=== PATIENT | female | born 1975 | race Caucasian/White ===

== ENCOUNTER → 2019-05-17 13:43 | Outpatient (BNVA) | payer MEDICARE, SELFPAY | PROVIDERS: Family Provider Family Medicine; PCP Family Medicine; Visit Provider Nurse Practitioner | DX: F31.81 Bipolar II disorder (principal); F17.210 Nicotine dependence, cigarettes, uncomplicated | CPT/HCPCS: 99213 ==

== ENCOUNTER → 2019-08-09 07:40 | Outpatient (BNVA) | payer MEDICARE, SELFPAY | PROVIDERS: Family Provider Family Medicine; PCP Family Medicine; Visit Provider Nurse Practitioner | DX: F31.81 Bipolar II disorder (principal) | CPT/HCPCS: 99213 ==

== ENCOUNTER → 2019-11-01 07:36 | Outpatient (BNVA) | payer MEDICARE, SELFPAY | PROVIDERS: Family Provider Family Medicine; PCP Family Medicine; Visit Provider Nurse Practitioner | DX: F31.81 Bipolar II disorder (principal); F17.210 Nicotine dependence, cigarettes, uncomplicated | CPT/HCPCS: 99213 ==

== ENCOUNTER → 2020-01-02 11:32 | Outpatient (BNVA) | payer BC, SELFPAY | PROVIDERS: Family Provider Family Medicine; PCP Family Medicine; Visit Provider Nurse Practitioner Women's Health | DX: N90.89 Other specified noninflammatory disorders of vulva and perineum (principal) | CPT/HCPCS: 88305 ==

== ENCOUNTER → 2020-01-10 13:19 | Outpatient (BNVA) | payer BC, SELFPAY | PROVIDERS: Family Provider Family Medicine; PCP Family Medicine; Visit Provider Family Medicine | DX: L81.9 Disorder of pigmentation, unspecified (principal) | CPT/HCPCS: 88304 ==

== ENCOUNTER → 2020-02-05 08:08 | Outpatient (BNVA) | payer BC, SELFPAY | PROVIDERS: Family Provider Family Medicine; PCP Family Medicine; Visit Provider Nurse Practitioner | DX: F31.81 Bipolar II disorder (principal); F17.210 Nicotine dependence, cigarettes, uncomplicated; F43.12 Post-traumatic stress disorder, chronic; F60.3 Borderline personality disorder | CPT/HCPCS: 99214 ==

== ENCOUNTER 2020-02-06 14:41 | Outpatient (CLI) | payer MEDICARE, SELFPAY ==
--- NOTE | 2020-02-06 15:30 | MM_ITS ---
WS: [id number] BILATERAL SCREENING DIGITAL MAMMOGRAM WITH CAD HISTORY: screening breast cancer COMPARISON: 12/30/2017 and 07/20/2013 Bilateral CC and MLO views submitted. Computer aided detection analyzed. Breast composition: There are scattered areas of fibroglandular density. No suspicious masses, microc alcifications or architectural distortion. Benign calcifications in each breast. MM/[place] [id number] IMPRESSION: BI-RADS: 2-Benign FOLLOW UP: 1 Year Follow-up
== END 2020-02-06 14:42 | disposition home or self-care (01) ==
LOC: RADSHAW 14:47
PROVIDERS: PCP Family Medicine; Visit Provider Nurse Practitioner Women's Health
DX: Z12.31 Encounter for screening mammogram for malignant neoplasm of breast (principal)
CPT/HCPCS: 77067

== ENCOUNTER → 2020-03-06 08:07 | Outpatient (BNVA) | payer MEDICARE, SELFPAY | PROVIDERS: PCP Family Medicine; Visit Provider Nurse Practitioner | DX: F31.81 Bipolar II disorder (principal); F43.12 Post-traumatic stress disorder, chronic | CPT/HCPCS: 99214 ==

== ENCOUNTER → 2020-04-01 08:23 | Outpatient (BNVA) | payer MEDICARE, SELFPAY | PROVIDERS: PCP Family Medicine; Visit Provider Nurse Practitioner | DX: F31.81 Bipolar II disorder (principal) | CPT/HCPCS: 99214 ==

== ENCOUNTER 2020-04-19 14:15 | Emergency (ER) | payer MEDICARE, MEDICAID, SELFPAY ==
[2020-04-19 14:34] VITALS: BP 143/89; PULSE 99; RESP 18; TEMP 36.6; O2SAT 97; BMI 44.3
--- NOTE | 2020-04-19 15:08 | W.ED.SKABFB ---
HPI - Skin/Abscess/Foreign Bdy General: Chief complaint: Skin/Abscess/Foreign Body Stated complaint: phy ref/poss staph infection Time Seen by Provider: 04/19/20 14:45 History of Present Illness: HPI narrative: This patient is a 44 year old female sent from [facility] for a staph infection on her abdomen. She has had pain and swelling for about a week. It bleed in the shower one day, but still has a lot of swelling and tenderness. She has had multiple skin infections in the past. No fever. Feels ok otherwise. complaint: abscess/boil Onset (ago): week(s) (1) Severity: similar to previous episodes Severity scale (1-10): 5 Quality: burning Pain Consistency: constant Relieving factors: none Exacerbating factors: palpation and movement Associated symptoms: Deny fever(s) Review of Systems Const: Denies: fever(s) Card: Denies: chest pain Resp: Denies: dyspnea or non-productive cough Skin/Breast: Reports: erythema, skin tenderness and skin swelling [facility] ED PFSH: Medical History Bipolar II disorder Dyslipidemia Essential hypertension Nicotine dependence, cigarettes, uncomplicated Type 2 diabetes mellitus without complication, with long-term current use of insulin Surgical History H/O section (~2003) H/O: hysterectomy (~2009) TVH--performed by [facility] for [facility]; ovaries spared Family History Mother Hypertension Hyperlipidemia Denies family history of Colon cancer Ovarian cancer Diabetes Heart disease Breast cancer Family history of thyroid problem Uterine cancer Stroke Social History Current gender identity: Female Additional social history: - Tobacco use: Current everyday smoker; 1pk daily Alcohol use: Denies Drug use: Denies Physical Exam Const: COMMON NORMALS: no acute distress and patient oriented x3 GENERAL APPEARANCE: cooperative and comfortable NUTRITIONAL APPEARANCE: obese Resp: COMMON NORMALS: normal respiratory effort EFFORT & INSPECTION: No respiratory distress Cardio: OTHER: pink and warm GI: INSPECTION: Yes other (small red area left lower abdomen - tender, fluctuant - 3 cm in diameter) Extremity: COMMON NORMALS: normal to inspection Neuro: COMMON NORMALS: patient oriented x3 Procedures Abscess I/D Site: abdomen Side (if applicable): left Local Anesthetic: lidocaine 1% Amount of anesthesia used (mL): 3 Technique: incised with #11 blade Amount of fluid expressed (mL): 30 Irrigation: Yes Packing used?: plain Course Vital Signs: Vital signs: Vital Signs Temperature 97.9 F 04/19/20 14:34 Pulse Rate 99 04/19/20 14:34 Respiratory Rate 18 04/19/20 14:34 Blood Pressure 143/89 04/19/20 14:34 Pulse Oximetry 97 04/19/20 14:34 Discharge Plan Discharge Patient Disposition: Home Clinical Impression: Abscess of skin or subcutaneous tissue Qualifiers: Site of cutaneous abscess: trunk Site of cutaneous abscess of trunk: abdominal wall Qualified Code(s): L02.211 - Cutaneous abscess of abdominal wall Condition: Stable Prescriptions: New clindamycin HCl 300 mg capsule 300 mg PO Q8H 10 Days Qty: 30 RF: 0 No Action povidone-iodine [Betadine Swabsticks] 10 % swab 1 applic topical ONCE Qty: 1 RF: 0 lidocaine-epinephrine 2 %-1:100,000 solution 5 ml SUBCUT ONCE Qty: 1 RF: 0 cephalexin [Keflex] 500 mg capsule 500 mg PO QID 14 Days Qty: 56 RF: 0 clindamycin phosphate 1 % solution 1 applic TOPICAL BID PRN (Reason: hidradenitis) Qty: 60 RF: 1 aripiprazole [Abilify] 15 mg tablet 15 mg PO DAILY Qty: 30 RF: 1 trazodone 300 mg tablet 300 mg PO .HS Qty: 30 RF: 1 bupropion HCl [Wellbutrin XL] 150 mg tablet extended release 24 hr 150 mg PO QAM Qty: 90 RF: 0 bupropion HCl [Wellbutrin XL] 300 mg tablet extended release 24 hr 300 mg PO QAM Qty: 90 RF: 0 metformin 500 mg tablet 500 mg PO ONCE RF: 0 pravastatin 20 mg tablet 20 mg PO ONCE RF: 0 metoprolol succinate 50 mg tablet extended release 24 hr 50 mg PO DAILY Qty: 30 RF: 0 losartan 25 mg tablet 25 mg PO DAILY Qty: 7 RF: 0 fenofibrate nanocrystallized 145 mg tablet 145 mg PO DAILY Qty: 21 RF: 0 rosuvastatin [Crestor] 20 mg tablet 20 mg PO DAILY Qty: 21 RF: 0 Discharge Orders: Discharge ED (Routine); Ordered 04/19/20 Ordered By: Ainsley Simon Referrals: Kylah Pedro DO [Primary Care Provider] - Discharge Diet: Usual diet Discharge Activity: Resume usual activity Patient Instructions: Abscess Incision and Drainage (ED) Activity Restrictions/Additional Instructions: Change the dressing at least twice daily. Wash the area with soap and water at least once daily. If the packing has no fallen out in two day, then you may remove it yourself. Follow up wtih your doctor as planned on Wednesday. Coding Level of Care Code ED Employee Relations Manager for [employer] Fwd Exam Expanded Problem Focused
== END 2020-04-19 15:30 | disposition home or self-care (01) ==
PROVIDERS: Emergency Provider Emergency Medicine; PCP Family Medicine
DX: L02.211 Cutaneous abscess of abdominal wall (principal); E78.5 Hyperlipidemia, unspecified; I10 Essential (primary) hypertension; E11.9 Type 2 diabetes mellitus without complications; F17.210 Nicotine dependence, cigarettes, uncomplicated
CPT/HCPCS: 10060; 12345; 99281; 99282

== ENCOUNTER → 2020-04-26 10:46 | Outpatient (BNVA) | payer BC, MEDICAID, SELFPAY | PROVIDERS: PCP Family Medicine; Visit Provider Family Medicine | DX: L02.211 Cutaneous abscess of abdominal wall (principal); F17.210 Nicotine dependence, cigarettes, uncomplicated | CPT/HCPCS: 87070; 87075; 87205 ==

== ENCOUNTER → 2020-07-08 13:02 | Outpatient (BNVA) | payer MEDICARE, MEDICAID, SELFPAY | PROVIDERS: PCP Family Medicine; Visit Provider Nurse Practitioner | DX: F31.81 Bipolar II disorder (principal); Z79.899 Other long term (current) drug therapy | CPT/HCPCS: 80061; 83036 ==

== ENCOUNTER → 2020-07-16 08:11 | Outpatient (BNVA) | payer MEDICARE, MEDICAID, SELFPAY ==
[2020-07-09 11:19] VITALS: BP 145/93; BMI 45.2
== END ==
PROVIDERS: PCP Family Medicine; Visit Provider Nurse Practitioner
DX: F31.81 Bipolar II disorder (principal); F17.210 Nicotine dependence, cigarettes, uncomplicated
CPT/HCPCS: 99214

== ENCOUNTER → 2020-09-10 14:48 | Outpatient (BNVA) | payer MEDICARE, MEDICAID, SELFPAY ==
[2020-07-09 11:19] VITALS: BP 145/93; BMI 45.2
== END ==
PROVIDERS: PCP Family Medicine; Visit Provider Nurse Practitioner
DX: F31.81 Bipolar II disorder (principal); F17.210 Nicotine dependence, cigarettes, uncomplicated
CPT/HCPCS: 99214

== ENCOUNTER → 2020-12-18 07:27 | Outpatient (BNVA) | payer MEDICARE, MEDICAID, OTHER, SELFPAY ==
[2020-07-09 11:19] VITALS: BP 145/93; BMI 45.2
== END ==
PROVIDERS: PCP Family Medicine; Visit Provider Nurse Practitioner
DX: F31.81 Bipolar II disorder (principal); F17.210 Nicotine dependence, cigarettes, uncomplicated
CPT/HCPCS: 99214

== ENCOUNTER → 2021-03-21 09:44 | Outpatient (BNVA) | payer MEDICARE, MEDICAID, SELFPAY ==
[2020-07-09 11:19] VITALS: BP 145/93; BMI 45.2
== END ==
PROVIDERS: PCP Family Medicine; Visit Provider Nurse Practitioner
DX: F31.81 Bipolar II disorder (principal); F17.210 Nicotine dependence, cigarettes, uncomplicated
CPT/HCPCS: 99214

== ENCOUNTER → 2021-03-26 10:50 | Outpatient (BNVA) | payer OTHER, SELFPAY ==
[2020-07-09 11:19] VITALS: BP 145/93; BMI 45.2
== END ==
PROVIDERS: PCP Family Medicine; Visit Provider Nurse Practitioner
DX: F31.81 Bipolar II disorder (principal); Z79.899 Other long term (current) drug therapy
CPT/HCPCS: 80061; 83036

== ENCOUNTER → 2021-06-27 07:44 | Outpatient (BNVA) | payer MEDICARE, MEDICAID, SELFPAY ==
[2021-03-27 10:17] VITALS: BP 139/87; BMI 41.4
== END ==
PROVIDERS: PCP Family Medicine; Visit Provider Nurse Practitioner
DX: F31.81 Bipolar II disorder (principal); F17.210 Nicotine dependence, cigarettes, uncomplicated
CPT/HCPCS: 99214

== ENCOUNTER → 2021-09-23 14:16 | Outpatient (BNVA) | payer MEDICARE, MEDICAID, SELFPAY ==
[2021-09-23 11:55] VITALS: BP 139/87; BMI 41.4
== END ==
PROVIDERS: PCP Family Medicine; Visit Provider Nurse Practitioner
DX: F31.81 Bipolar II disorder (principal); F17.210 Nicotine dependence, cigarettes, uncomplicated
CPT/HCPCS: 99214

== ENCOUNTER → 2021-10-02 16:10 | Outpatient (BNVA) | payer MEDICARE, MEDICAID, SELFPAY ==
[2021-09-23 11:55] VITALS: BP 139/87; BMI 41.4
== END ==
PROVIDERS: PCP Family Medicine; Visit Provider Family Medicine
DX: I10 Essential (primary) hypertension (principal); G43.019 Migraine without aura, intractable, without status migrainosus
CPT/HCPCS: 80053; 82043; 85025

== ENCOUNTER → 2022-03-31 09:02 | Outpatient (BNVA) | payer OTHER, SELFPAY ==
[2021-09-23 11:55] VITALS: BP 139/87; BMI 41.4
== END ==
PROVIDERS: PCP Family Medicine; Visit Provider Nurse Practitioner
DX: F31.81 Bipolar II disorder (principal); Z79.899 Other long term (current) drug therapy
CPT/HCPCS: 80061; 83036

== ENCOUNTER 2022-05-06 06:44 | Day surgery (SDC) | payer MEDICARE, MEDICAID, SELFPAY ==
[2021-09-23 11:55] VITALS: BP 139/87; BMI 41.4
[2022-04-07 16:39] VITALS: BP 123/81; BMI 41.3
[2022-04-30 09:54] VITALS: BMI 40.0
[2022-05-06 07:03] VITALS: BP 135/98; PULSE 84; RESP 18; TEMP 36.3; O2SAT 96
[2022-05-06] MEDS: sodium chloride 0.9% 1,000 ML 30 ML IV (07:07)
--- NOTE | 2022-05-06 07:41 | P.ANESASSM_ITS ---
Pre-Anesthetic Assessment Height/Weight: Height 1.75 m Weight 122.924 kg Temp Pulse Resp BP Pulse Ox O2 Del Method 97.4 F L 84 18 135/98 96 05/06/22 07:03 05/06/22 07:03 05/06/22 07:03 05/06/22 07:03 05/06/22 07:03 05/06/22 07:03 Operation Date: 05/06/22 08:30 Proposed Procedures p [id number] egd, [address] colon Z12.11,R19.7,R10.816(Not Applicable) - DO [facility] Colonoscopy(Not Applicable) - Maurisio Bolanos DO Familial anesthetic complications: None Was Beta Brandi taken within 24 hours: N/A Was Clonidine taken within 24 hours: N/A Last intake: Intake Last Liquid Date 05/05/22 Last Liquid Time 22:00 Last Solid Date 05/04/22 Last Solid Time 17:00 Social Tobacco and No alcohol Exam alert, oriented x 3, clear to auscultation bilaterally and regular rate & rhythm Airway Mallampati: Class IV Dentition: other (missing teeth) CV/HEM Hypertension Metabolic Hyperlipidemia and Morbid Obesity Neuropsych Bipolar Anesthetic Plan ASA status: 3 Anesthesia: MAC Risk of > 500 ml blood loss (7ml/kg in children): No Medications/Allergies Home Medications Medication Instructions Recorded Confirmed Last Taken Type amlodipine 10 mg tablet (Norvasc) 10 mg PO DAILY #90 tabs 10/02/21 05/06/22 05/05/22 Rx lisinopril 10 mg tablet 10 mg PO DAILY #90 tabs 10/02/21 05/06/22 05/05/22 Rx aripiprazole 20 mg tablet (Abilify) 20 mg PO DAILY #90 tabs 04/10/22 05/06/22 05/05/22 Rx bupropion HCl 150 mg 24 hr tablet, 150 mg PO QAM #90 tabs 04/10/22 05/06/22 05/05/22 Rx extended release (Wellbutrin XL) bupropion HCl 300 mg 24 hr tablet, 300 mg PO QAM #90 tabs 04/10/22 05/06/22 05/05/22 Rx extended release (Wellbutrin XL) buspirone 15 mg tablet 15 mg PO BID #180 tabs 04/10/22 05/06/22 05/05/22 Rx topiramate 50 mg tablet (Topamax) See Rx Instructions .Route .COMPLEX 04/30/22 05/06/22 05/05/22 History Allergies Allergy/AdvReac Type Severity Reaction Status Date / Time Penicillins Allergy Unknown Verified 05/06/22 07:03 Current Medications Generic Name Dose Route Start Last Admin Trade Name Ty PRN Reason Stop Dose Admin Sodium Chloride 1,000 mls @ 30 mls/hr 05/06/22 07:00 05/06/22 07:07 Sodium Chloride 0.9% IV 05/07/22 06:59 30 mls/hr .Q24H SHAWNA Administration PFSH Anesthesia Medical History Bipolar II disorder Dyslipidemia Essential hypertension Nicotine dependence, cigarettes, uncomplicated Psychiatric care Psychiatric care Type 2 diabetes mellitus without complication, with long-term current use of insulin Surgical History H/O section (~2003) H/O: hysterectomy (~2009) TVH--performed by [facility]; ovaries spared Hx of cholecystectomy Family History (Updated 03/31/22 @ 10:13 by Malu Olsen RN) Mother Hypertension Hyperlipidemia Father Suicide Denies family history of Colon cancer Ovarian cancer Diabetes Heart disease Breast cancer Family history of thyroid problem Uterine cancer Stroke Social History (Updated 03/31/22 @ 09:57 by Malu Olsen RN) Smoking and tobacco status: current every day smoker cigarettes Packs smoked p er day: 0.3 Years cigarettes smoked: 31 Quit status (tobacco): considering quitting Second hand smoke exposure: Yes Alcohol intake: never Adopted: No Caregiver/support person: No Lives independently: Yes Household members: family Housing: House Marital status: Legally Marital status details: after 18 years Number of children: 2 Number of grandchildren: 2 Highest education level completed: 11th Grade service: No Current occupational status: disabled 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 Pets and animals: Yes Pets & animals: cat(s) and dog(s) Pets & animal details: 1 cats and 3 dogs History of recent travel: No (went to [place]) Leisure activites: games and other Leisure activities details: playing with dogs Sexually active: No Current gender identity: Female Tayler/Baptism: None Special tayler needs: No Agree to transfusion: Yes Financial difficulty paying for basics: Somewhat Hard Additional social history: - Tobacco use: Current everyday smoker; 1pk daily Alcohol use: Denies Drug use: Denies Female Reproductive History Para: 2 Spontaneous abortions: Yes (2) Data Anesthesia Cardiac Studies: No Data to Display
--- NOTE | 2022-05-06 08:56 | PM.HP ---
Providers/Chief Complaint Primary Care Provider: Kylah Pedro DO Chief Complaint: Z12.11, R19.7, R10.816 History of Present Illness Ophelia Lama is a 46 year old female here for EGD and colonoscopy Medications/Allergies Home Medications Medication Instructions Recorded Confirmed Last Taken Type amlodipine 10 mg tablet (Norvasc) 10 mg PO DAILY #90 tabs 10/02/21 05/06/22 05/05/22 Rx lisinopril 10 mg tablet 10 mg PO DAILY #90 tabs 10/02/21 05/06/22 05/05/22 Rx aripiprazole 20 mg tablet (Abilify) 20 mg PO DAILY #90 tabs 04/10/22 05/06/22 05/05/22 Rx bupropion HCl 150 mg 24 hr tablet, 150 mg PO QAM #90 tabs 04/10/22 05/06/22 05/05/22 Rx extended release (Wellbutrin XL) bupropion HCl 300 mg 24 hr tablet, 300 mg PO QAM #90 tabs 04/10/22 05/06/22 05/05/22 Rx extended release (Wellbutrin XL) buspirone 15 mg tablet 15 mg PO BID #180 tabs 04/10/22 05/06/22 05/05/22 Rx topiramate 50 mg tablet (Topamax) See Rx Instructions .Route .COMPLEX 04/30/22 05/06/22 05/05/22 History Allergies Allergy/AdvReac Type Severity Reaction Status Date / Time Penicillins Allergy Unknown Verified 05/06/22 07:03 PFSH Acute PFSH: Medical History Bipolar II disorder Dyslipidemia Essential hypertension Nicotine dependence, cigarettes, uncomplicated Psychiatric care Psychiatric care Type 2 diabetes mellitus without complication, with long-term current use of insulin Surgical History H/O section (~2003) H/O: hysterectomy (~2009) TVH--performed by [facility] for [facility]; ovaries spared Hx of cholecystectomy Family History (Updated 03/31/22 @ 10:13 by Malu Olsen RN) Mother Hypertension Hyperlipidemia Father Suicide Denies family history of Colon cancer Ovarian cancer Diabetes Heart disease Breast cancer Family history of thyroid problem Uterine cancer Stroke Social History (Updated 03/31/22 @ 09:57 by Malu Olsen RN) Smoking and tobacco status: current every day smoker cigarettes Packs smoked per day: 0.3 Years cigarettes smoked: 31 Quit status (tobacco): considering quitting Second hand smoke exposure: Yes Alcohol intake: never Adopted: No Caregiver/support person: No Lives independently: Yes Household members: family Housing: House Marital status: Legally Marital status details: after 18 years Number of children: 2 Number of grandchildren: 2 Highest education level completed: 11th Grade service: No Current occupational status: disabled Current occupation: nursing home social worker Pets and animals: Yes Pets & animals: cat(s) and dog(s) Pets & animal details: 1 cats and 3 dogs History of recent travel: No (went to [place]) Leisure activites: games and other Leisure activities details: playing with dogs Sexually active: No Current gender identity: Female Tayler/Rastafari: None Special tayler needs: No Agree to transfusion: Yes Financial difficulty paying for basics: Somewhat Hard Additional social history: - Tobacco use: Current everyday smoker; 1pk daily Alcohol use: Denies Drug use: Denies Female Reproductive History: Para: 2 Spontaneous abortions: Yes (2) Vitals/I&O/Wt Last Vital Signs Temp 97.4 F L 05/06/22 07:03 Pulse 84 05/06/22 07:03 Resp 18 05/06/22 07:03 BP 135/98 05/06/22 07:03 Pulse Ox 96 05/06/22 07:03 O2 Del Method 05/06/22 07:03 A&P Assessment and plan (1) Colon cancer screening: (2) Epigastric abdominal tenderness: Plan EGD and colonoscopy Attestations Medical Necessity Statement*: Home Coding Level of Care Code Acute Histologist Technologist for Chg Fwd Diagnoses Colon cancer screening Z12.11 Epigastric abdominal tenderness R10.816
[2022-05-06 09:19] VITALS: BP 128/88; PULSE 72; RESP 16; TEMP 36.5; O2SAT 95
[2022-05-06 09:29] VITALS: BP 113/89; PULSE 73; RESP 16; O2SAT 98
--- NOTE | 2022-05-06 12:05 | ANE.PACU2 ---
Inpatient post-anesthesia follow up: Airway intact: Yes Vital signs: Temperature 97.7 F Pulse Rate 73 Respiratory Rate 16 Blood Pressure 113/89 Pulse Oximetry 98 Oxygen Delivery Me thod Nasal Cannula Oxygen Flow Rate 3 Fraction of Inspir ed Oxygen Hydration adequate: Yes Nausea and vomiting: No Pain level: 1 Mental status: Baseline
== END 2022-05-06 09:53 | disposition home or self-care (01) ==
PROVIDERS: PCP Family Medicine; Visit Provider Surgery
PROC: 0DJ08ZZ Inspection of Upper Intestinal Tract, Via Natural or Artificial Opening Endoscopic (ICD-10-PCS; CPT 43235; principal; 2022-05-06 08:30)
PROC: 0DJD8ZZ Inspection of Lower Intestinal Tract, Via Natural or Artificial Opening Endoscopic (ICD-10-PCS; CPT 45378; 2022-05-06 08:30)
DX: R19.7 Diarrhea, unspecified (principal); R10.816 Epigastric abdominal tenderness; K29.70 Gastritis, unspecified, without bleeding; D12.2 Benign neoplasm of ascending colon; I10 Essential (primary) hypertension; E78.5 Hyperlipidemia, unspecified; E66.01 Morbid (severe) obesity due to excess calories; Z68.41 Body mass index [BMI] 40.0-44.9, adult; F17.210 Nicotine dependence, cigarettes, uncomplicated; E11.9 Type 2 diabetes mellitus without complications; Z79.4 Long term (current) use of insulin
CPT/HCPCS: 43239; 45385; 88305; J2704; J7030

== ENCOUNTER → 2022-05-28 14:31 | Outpatient (BNVA) | payer MEDICARE, MEDICAID, SELFPAY ==
[2022-04-07 16:39] VITALS: BP 123/81; BMI 41.3
== END ==
PROVIDERS: PCP Family Medicine; Visit Provider Surgery
DX: Z09 Encounter for follow-up examination after completed treatment for conditions other than malignant neoplasm (principal); K21.9 Gastro-esophageal reflux disease without esophagitis; D12.6 Benign neoplasm of colon, unspecified
CPT/HCPCS: 99212

== ENCOUNTER 2022-09-07 10:58 | Outpatient (CLI) | payer MEDICARE, MEDICAID, SELFPAY ==
[2022-04-07 16:39] VITALS: BP 123/81; BMI 41.3
--- NOTE | 2022-09-07 11:10 | MR_ITS ---
WS: [id number] EXAMINATION: MR foot LT wo con* [id number] ORDER DATE: 09/07/2022 11:31 AM COMPARISON: None. HISTORY: SPRAIN OF L FOOT CONTRAST: None. TECHNIQUE: Sagittal T1, sagittal STIR, coronal PD, coronal T2, axial T1, axial T2, and axial PD imagi ng with fat saturation technique. FINDINGS: Prominent plantar calcaneal spurring. Dorsal calcaneal spurring. Hypertrophic osteophytes a t the dorsal navicular. Distal Achilles appears intact. Trace fluid in the retrocalcaneal bursa. Norm al medial and lateral malleolus. Normal talar dome. No evidence of avascular necrosis. Trace edema in the medial aspect of the talar dome. No acute avulsion fractures. Small ankle effusion. Diffuse soft tissue edema involving the hindfoot. High-grade complete tear of the ATF. No normal fibe rs visualized. PCL appears intact. Fluid and edema in the anterolateral gutter. T2 bone marrow signal abnormality involving the navicular likely due to contusion. Normal bone marrow signal in the calcan eus. Normal bone marrow signal in the cuboid and base of 5th metatarsal. Normal bone marrow signal in the cuneiforms. Small amount of fluid along the peroneal tendon sheath compatible with tenosynovitis. Tenosynovitis a long the tibialis anterior. Small amount of tenosynovitis along the tibialis posterior. MR/MR foot LT wo con* [id number] IMPRESSION: 1. High-grade complete tear of the ATF with no normal fibers visualized. 2. Small amount of fluid and edema in the anterolateral gutter with moderate a nkle effusion. 3. PTF appears intact. 4. Normal medial and lateral malleolus. No acute avulsion fractures. 5. Trace edema in the medial talar dome likely due to a small amount of contus ion. Additional suspected contusion involving the navicular. 6. Distal Achilles appears intact. 7. Tenosynovitis involving the peroneal tendon sheath and tibialis anterior an d posterior. 8. Distal Achilles appears intact. Small amount of fluid in the retrocalcaneal bursa. 9. Plantar and dorsal Achilles calcaneal spurring
== END 2022-09-07 10:59 | disposition home or self-care (01) ==
PROVIDERS: PCP Family Medicine; Visit Provider Family Medicine
DX: S93.431A Sprain of tibiofibular ligament of right ankle, initial encounter (principal); X58.XXXA Exposure to other specified factors, initial encounter; M25.472 Effusion, left ankle
CPT/HCPCS: 73718

== ENCOUNTER 2022-09-16 15:52 | Outpatient (CLI) | payer MEDICARE, MEDICAID, SELFPAY ==
[2022-04-07 16:39] VITALS: BP 123/81; BMI 41.3
== END 2022-09-16 15:53 | disposition home or self-care (01) ==
LOC: SPT 15:53
PROVIDERS: PCP Family Medicine; Visit Provider Podiatrist Foot & Ankle Surgery
DX: Z46.89 Encounter for fitting and adjustment of other specified devices (principal); M25.572 Pain in left ankle and joints of left foot; M25.372 Other instability, left ankle; M25.472 Effusion, left ankle; S93.492D Sprain of other ligament of left ankle, subsequent encounter; W01.0XXD Fall on same level from slipping, tripping and stumbling without subsequent striking against object, subsequent encounter
CPT/HCPCS: 97760; 99203; L1902

== ENCOUNTER 2022-10-08 06:49 | Day surgery (SDC) | payer MEDICARE, MEDICAID, SELFPAY ==
[2022-04-07 16:39] VITALS: BP 123/81; BMI 41.3
[2022-10-07 10:19] VITALS: BMI 41.3
[2022-10-08] VITALS (10 sets, daily range): BP systolic 94–123; BP diastolic 64–84; PULSE 76–92; RESP 16–18; TEMP 36.2–36.3; O2SAT 94–100
--- NOTE | 2022-10-08 | XR_ITS ---
WS: [id number] Exam: XR ankle LT 2V [id number] Date/Time of Exam: 10/08/2022 12:00 AM Reason For Exam: SURGICAL PROCEDURE Lateral and AP images of the left ankle are obtained for intraoperative purposes.
--- NOTE | 2022-10-08 07:12 | ANES.PREANE2 ---
Pre-Anesthetic Assessment Height/Weight: Height 1.75 m Weight 127.006 kg Temp Pulse Resp BP Pulse Ox O2 Del Method 97.1 F L 82 18 123/82 97 Room Air 10/08/22 07:08 10/08/22 07:08 10/08/22 07:08 10/08/22 07:08 10/08/22 07:08 10/08/22 07:08 Preop Diagnosis: Chronic ankle instability left ankle Operation Date: 10/08/22 09:00 Proposed Procedures p Left ankle modified brostrom with internal brace CPT 70953, S93.492D(Left) - Ulises Johnson DPM Familial anesthetic complications: NOne Was Beta Brandi taken within 24 hours: N/A Was Clonidine taken within 24 hours: N/A Last intake: Intake Last Liquid Date 10/07/22 Last Liquid Time 22:00 Last Solid Date 10/07/22 Last Solid Time 18:30 Social Tobacco and No alcohol Exam alert, oriented x 3, clear to auscultation bilaterally and regular rate & rhythm Airway Mallampati: Class III Dentition: other (missing) GI Gastroesophageal Reflux Disease Metabolic Hyperlipidemia and Morbid Obesity Anesthetic Plan ASA status: 3 Anesthesia: General and Regional (specify below) Risk of > 500 ml blood loss (7ml/kg in children): No Medications/Allergies Home Medications Medication Instructions Recorded Confirmed Last Taken Type amlodipine 10 mg tablet (Norvasc) 10 mg PO DAILY #90 tabs 10/02/21 10/07/22 10/07/22 Rx lisinopril 10 mg tablet 10 mg PO DAILY #90 tabs 10/02/21 10/07/22 10/07/22 Rx topiramate 50 mg tablet (Topamax) 50 mg PO DAILY 04/30/22 10/07/22 10/07/22 History pantoprazole 40 mg tablet,delayed 40 mg PO BID 6 weeks #84 tabs 05/06/22 10/07/22 10/07/22 Rx release (Protonix) aripiprazole 20 mg tablet (Abilify) 20 mg PO DAILY #90 tabs 07/17/22 10/07/22 10/07/22 Rx bupropion HCl 150 mg 24 hr tablet, 150 mg PO QAM #90 tabs 07/17/22 10/07/22 10/07/22 Rx extended release (Wellbutrin XL) bupropion HCl 300 mg 24 hr tablet, 300 mg PO QAM #90 tabs 07/17/22 10/07/22 10/07/22 Rx extended release (Wellbutrin XL) buspirone 15 mg tablet 15 mg PO BID #180 tabs 07/17/22 10/07/22 10/07/22 Rx eszopiclone 2 mg tablet (Lunesta) 2 mg PO .HS #30 tabs 07/17/22 10/07/22 10/07/22 Rx hydroxyzine HCl 25 mg tablet 50 mg PO .HS PRN sleep #60 tabs 07/17/22 10/07/22 10/07/22 Rx ASO brace #1 ea 09/16/22 09/16/22 Unknown Rx Allergies Allergy/AdvReac Type Severity Reaction Status Date / Time Penicillins Allergy Unknown Verified 10/08/22 07:15 [facility] Anesthesia Medical History Bipolar II disorder Dyslipidemia Essential hypertension Nicotine dependence, cigarettes, uncomplicated Psychiatric care Psychiatric care Tubular adenoma of colon Type 2 diabetes mellitus without complication, with long-term current use of insulin Surgical History H/O section (~2003) H/O: hysterectomy (~2009) TVH--performed by [facility]; ovaries spared Hx of cholecystectomy Family History Mother Hypertension Hyperlipidemia Father Suicide Denies family history of Colon cancer Ovarian cancer Diabetes Heart disease Breast cancer Family history of thyroid problem Uterine cancer Stroke Social History Smoking and tobacco status: current every day smoker cigarettes Packs smoked per day: 0.3 Years cigarettes smoked: 31 Quit status (tobacco): considering quitting Second hand smoke exposure: Yes Alcohol intake: never Substance/Drug Use: never Adopted: No Caregiver/support person: No Lives independently: Yes Household members: family Housing: House Marital status: Legally Marital status details: after 18 years Number of children: 2 Number of grandchildren: 2 Highest education level completed: 11th Grade service: No Current occupational status: disabled 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 Pets and animals: Yes Pets & animals: cat(s) and dog(s) Pets & animal details: 1 cats and 3 dogs Leisure activites: games and other Leisure activities details: playing with dogs Sexually active: No Do you think of yourself as: Straight/Heterosexual Current gender identity: Female Tayler/Episcopal: None Special tayler needs: No Agree to transfusion: Yes Financial difficulty paying for basics: Somewhat Hard Additional social history: - Tobacco use: Current everyday smoker; 1pk daily Alcohol use: Denies Drug use: Denies Female Reproductive History Para: 2 Spontaneous abortions: Yes (2) Data Anesthesia Cardiac Studies: No Data to Display
[2022-10-08] MEDS: gabapentin 300 mg Capsule PO (07:13)
[2022-10-08] MEDS: acetaminophen 1,000 MG/100 ML PIGGYBACK 400 MG IV (07:14)
[2022-10-08] MEDS: sodium chloride 0.9% 1,000 ML 30 ML IV (07:15)
--- NOTE | 2022-10-08 07:48 | ANES.PROC ---
Anesthesia Procedures Procedure/Date: 10/08/22 Nerve Block ^: Nerve Block 1: Main Anesthesia: general anesthesia Time Out Performed: Yes Consent: requested by attending/covering physician, from patient, from other, risks and benefits reviewed and patient agrees to proceed Nerve block location: popliteal (L) Anesthesia monitors applied: pulse oximetry, EKG, BP cuff and oxygen Nerve block position: supine Anesthetic Used: ropivicaine 0.5% (30 ml) and with decadron (4 mg) Ultrasound used to: recognize landmarks Nerve Stimulator Used?: No Interscalene/Femoral BLK: 4 stimuplex 21 g needle used for position and inplane approach, visualize local anesthetic spread and no vascular puncture identified Injection: neg aspiration of heme Patient Tolerated Procedure: no complications Complications: none
--- NOTE | 2022-10-08 08:39 | P.HP_ITS ---
Same Day Surgery H&P Indication for Procedure/HPI DATE OF PROCEDURE: October 08, 2022 CHIEF COMPLAINT/INDICATIONFOR SURGICAL PROCEDURE: Left ankle chronic ankle instability PREOP DIAGNOSIS: Chronic ankle instability left ankle PLANNED PROCEDURE: Operation Date: 10/08/22 09:00 Proposed Procedures p Left ankle modified brostrom with internal brace CPT 94421, S93.492D(Left) - Ulises Johnson DPM Medications/Allergies* Home Medications Medication Instructions Recorded Confirmed Type topiramate 50 mg tablet (Topamax) 50 mg PO DAILY 04/30/22 10/07/22 History Allergies/Adverse Reactions Allergy/AdvReac Type Severity Reaction Status Date / Time Penicillins Allergy Unknown Verified 10/08/22 07:15 Current Medications: Generic Name Dose Route Start Last Admin Trade Name Freq PRN Reason Stop Dose Admin Sodium Chloride 1,000 mls @ 30 mls/hr 10/08/22 07:15 10/08/22 07:15 Sodium Chloride 0.9% IV 10/09/22 07:14 30 mls/hr .Q24H SHAWNA Administration Pertinent History/Comorbid Conditions* Medical History (Updated 09/20/22 @ 16:08 by Ulises Johnson DPM) Bipolar II disorder Dyslipidemia Essential hypertension Nicotine dependence, cigarettes, uncomplicated Psychiatric care Psychiatric care Tubular adenoma of colon Type 2 diabetes mellitus without complication, with long-term current use of insulin Surgical History (Updated 03/06/22 @ 10:39 by Maurisio Bolanos DO) H/O section (~2003) H/O: hysterectomy (~2009) TVH--performed by [facility] for [facility]; ovaries spared Hx of cholecystectomy Family History (Updated 03/31/22 @ 10:13 by Malu Olsen RN) Hyperlipidemia Mother Suicide Father Hypertension Mother Denies family history of Colon cancer Ovarian cancer Diabetes Heart disease Breast cancer Family history of thyroid problem Uterine cancer Stroke Social History Smoking and tobacco status: current every day smoker cigarettes Packs smoked per day: 0.3 Years cigarettes smoked: 31 Quit status (tobacco): considering quitting Second hand smoke exposure: Yes Alcohol intake: never Substance/Drug Use: never Adopted: No Caregiver/support person: No Lives independently: Yes Household members: family Housing: House Marital status: Legally Marital status details: after 18 years Number of children: 2 Number of grandchildren: 2 Highest education level completed: 11th Grade service: No Current occupational status: disabled 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 Pets and animals: Yes Pets & animals: cat(s) and dog(s) Pets & animal details: 1 cats and 3 dogs Leisure activites: games and other Leisure activities details: playing with dogs Sexually active: No Do you think of yourself as: Straight/Heterosexual Current gender identity: Female Tayler/Denominational: None Special tayler needs: No Agree to transfusion: Yes Financial difficulty paying for basics: Somewhat Hard Additional social history: - Tobacco use: Current everyday smoker; 1pk daily Alcohol use: Denies Drug use: Denies Pertinent Exam Findings alert, oriented x 3, clear to auscultation bilaterally, regular rate & rhythm, operative site marked and procedure specific exam findings GENERAL: A&O x 3 VASCULAR: DP/PT pulses palpable 2/4 with CFT intact, <3seconds to distal digits DERMATOLOGICAL: Skin turgor and temperature is within normal limits. No open wou nds or skin lesions noted. Nails are well manicured and normotrophic. No interdigital maceration noted. MUSCULOSKELETAL: Left ankle positive anterior drawer, pain with palpation of left lateral ankle ligaments NEUROLOGICAL: Neurological sensation to the affected foot and ankle is present through L4-S1 dermatomes with no hyper/hypoesthesias, negative Tinel or Valleix's sign CARDIO: Regular rate and rhythm. Normal S1, S2. No murmurs, rubs or gallops RESPIRATORY: Normal respiratory effort. No wheezing or crackles. Clear to auscultation Recommendations Surgery/Procedure today Other Plans: Left ankle modified brostrom with internal brace Coding Level of Care Code Acute Code for [facility] Fwd Diagnoses
[2022-10-08] MEDS: clindamycin 600 MG/50 ML PREMIX 100 MG IV (08:46)
--- NOTE | 2022-10-08 10:04 | P.OP_ITS ---
Operative Report Date of procedure: October 08, 2022 Pre-op diagnosis: Preop Diagnosis Chronic ankle instability left ankle Post-op diagnosis: Same Post-op findings: Grossly unstable lateral ankle ligaments to the left ankle with complete rupture of anterior talofibular ligament Procedure done: Left ankle modified Brostr?m with internal brace CPT 64278 Implants: Internal brace and to 3.0 knotless anchors from [employer] Surgeon: Meera [email or web address] Estimated blood loss: 5 cc 42 minutes Complications: None Findings: See above Procedure: Patient is a 47-year-old female that has a history of left ankle chronic ankle instability. The patient has had the aforementioned chief complaint for some time. Conservative treatment measures have been attempted and the patient has opted for surgical intervention at this time. A lengthy discussion regarding the procedure, including risks and complications has been had with the patient and is noted in the recent clinic note. Written and verbal consent have been obtained. All patient questions have been answered to the patient?s satisfaction. No written or verbal guarantees have been given or implied. The patient has been NPO since midnight. The history has been reviewed and the history and physical is current. The signed consent was confirmed and placed in the patient chart. Patient imaging has been reviewed and is consistent with the diagnosis. Under mild sedation, the patient was brought into the operating room and placed on the table in the supine position. IV antibiotics were given by the anesthesia team as preoperative surgical prophylaxis. General sedation was then performed by the anesthesiateam. A pneumatic tourniquet was then placed about the left thigh. The operative extremity was then prepped and draped in the usual fashion. The extremity was then elevated and exsanguinated before the tourniquet was inflated to 125 mmHg. the patient also received a popliteal block in the preoperative area by the anesthesia team. After inflation, the following procedure was then performed. Attention was directed to the left ankle where a 5 cm curvilinear incision was made to the anterior surface of the lateral malleolus. Dissection was carried down through subcutaneous and superficial fascia to the level of the ankle joint capsule. The ankle joint capsule was then incised and reflected anteriorly from the distal fibula. The anterior talofibular ligament was noted to be thickened with evidence of degeneration and fraying consistent with anterior talofibular ligament attenuation. Dissection was carried out anterior to the anterior talofibular ligament before the sinus tarsi guide was placed in the sinus tarsi. A K wire was driven through the guide and positioning of the wire was confirmed on C-arm imaging. Next a cannulated drill system was used to drill over the wire into the talus in preparation for the internal brace swivel lock anchor. After drilling, the drill hole was tapped before the internal brace swivel lock anchor was inserted into the talus per the manufacture protocol. Next, attention was directed to the anterior fibula where 2 separate holes were drilled for a 3.0 knotless suture anchor from [employer]. The suture anchors were then inserted per the manufacture protocol. A third hole was then drilled into the fibula in between the prior drill holes. This hole was for fixation of the internal brace. Next, the suture anchors were passed through the anterior talofibular ligament after the redundancy of the ligament has been excised. With the ankle and dorsiflexion eversion the Brostr?m procedure was performed with the suture anchors. Next, the internal brace was fixated to the fibula. The ankle was held in neutral positioning for insertion of this anchor. The ankle was then assessed and stressed and was noted to be stable in comparison to the preoperative exam. The incision was then irrigated with copious amounts of sterile saline before attention was directed to closure. Deep tissue was closed with 3-0 Vicryl followed by subcuticular closure with 4-0 Vicryl and skin closed with 4-0 nylon in horizontal mattress fashion. The tourniquet was let down and good hyperemic response was noted to all digits of the left foot. The incision was dressed with Xeroform, 4 x 4 gauze, Kerlix before being placed in a well- padded below the knee posterior splint. The patient tolerated the procedure and anesthesia well and without complication. The patient was transported from the operating room to the recovery room with vital signs stable and vascular status intact to all digits of the left foot. The patient was given both written and verbal instructions to remain weightbearing to the operative extremity, to keep dressings/splint clean, dry and intact and to take pain medication as directed. The patient will follow- up in the outpatient setting at their scheduled appointment. The patient was discharged with my personal number and was instructed to call if any questions or issues should arise. They were discharged home once anesthesia criteria was met.
--- NOTE | 2022-10-08 13:24 | ANE.PACU2 ---
Inpatient post-anesthesia follow up: Airway intact: Yes Vital signs: Temperature 97.2 F Pulse Rate 91 Respiratory Rate 18 Blood Pressure 107/76 Pulse Oximetry 94 Oxygen Delivery Me thod Room Air Oxygen Flow Rate 6 Fraction of Inspir ed Oxygen Hydration adequate: Yes Nausea and vomiting: No Pain level: 1 Mental status: Baseline
== END 2022-10-08 11:08 | disposition home or self-care (01) ==
PROVIDERS: PCP Family Medicine; Visit Provider Podiatrist Foot & Ankle Surgery
PROC: (CPT 27698; principal; 2022-10-08 09:00)
DX: M25.372 Other instability, left ankle (principal); S93.492A Sprain of other ligament of left ankle, initial encounter; X58.XXXA Exposure to other specified factors, initial encounter; F17.210 Nicotine dependence, cigarettes, uncomplicated; K21.9 Gastro-esophageal reflux disease without esophagitis; E78.5 Hyperlipidemia, unspecified; E66.01 Morbid (severe) obesity due to excess calories; Z68.41 Body mass index [BMI] 40.0-44.9, adult; F31.81 Bipolar II disorder; I10 Essential (primary) hypertension; E11.9 Type 2 diabetes mellitus without complications
CPT/HCPCS: 27698; 73600; 76000; C1713; J0131; J1100; J2704; J2795; J3010; J3490; J7030

== ENCOUNTER → 2022-10-21 08:28 | Outpatient (BNVA) | payer MEDICARE, MEDICAID, SELFPAY ==
[2022-04-07 16:39] VITALS: BP 123/81; BMI 41.3
== END ==
PROVIDERS: PCP Family Medicine; Visit Provider Podiatrist Foot & Ankle Surgery
DX: Z48.89 Encounter for other specified surgical aftercare (principal)
CPT/HCPCS: 99024

== ENCOUNTER 2022-10-21 10:36 | Outpatient (CLI) | payer MEDICARE, MEDICAID, SELFPAY ==
[2022-04-07 16:39] VITALS: BP 123/81; BMI 41.3
== END 2022-10-21 10:37 | disposition home or self-care (01) ==
LOC: SPT 10:37
PROVIDERS: PCP Family Medicine; Visit Provider Podiatrist Foot & Ankle Surgery
DX: Z46.89 Encounter for fitting and adjustment of other specified devices (principal); M25.572 Pain in left ankle and joints of left foot
CPT/HCPCS: 97760; L4361

== ENCOUNTER → 2022-11-04 15:03 | Outpatient (BNVA) | payer MEDICARE, MEDICAID, SELFPAY ==
[2022-04-07 16:39] VITALS: BP 123/81; BMI 41.3
== END ==
PROVIDERS: PCP Family Medicine; Visit Provider Podiatrist Foot & Ankle Surgery
DX: Z98.890 Other specified postprocedural states (principal)
CPT/HCPCS: 99024

== ENCOUNTER → 2022-11-18 14:28 | Outpatient (BNVA) | payer MEDICARE, MEDICAID, SELFPAY ==
[2022-04-07 16:39] VITALS: BP 123/81; BMI 41.3
== END ==
PROVIDERS: Visit Provider Podiatrist Foot & Ankle Surgery
DX: Z98.890 Other specified postprocedural states (principal)
CPT/HCPCS: 99024

== ENCOUNTER 2022-11-19 09:14 | Outpatient (RCR) | payer MEDICARE, MEDICAID, SELFPAY ==
[2022-04-07 16:39] VITALS: BP 123/81; BMI 41.3
== END 2022-12-07 23:59 | disposition home or self-care (01) ==
LOC: SPT 09:14
PROVIDERS: Visit Provider Podiatrist Foot & Ankle Surgery
DX: M25.372 Other instability, left ankle (principal); Z47.89 Encounter for other orthopedic aftercare
CPT/HCPCS: 97110; 97161

== ENCOUNTER → 2022-12-30 13:37 | Outpatient (BNVA) | payer MEDICARE, MEDICAID, SELFPAY ==
[2022-04-07 16:39] VITALS: BP 123/81; BMI 41.3
== END ==
PROVIDERS: Visit Provider Podiatrist Foot & Ankle Surgery
DX: Z98.890 Other specified postprocedural states (principal)
CPT/HCPCS: 99024

== ENCOUNTER → 2023-03-23 08:41 | Outpatient (BNVA) | payer MEDICARE, MEDICAID, SELFPAY ==
[2022-04-07 16:39] VITALS: BP 123/81; BMI 41.3
== END ==
PROVIDERS: PCP Family Medicine; Visit Provider Surgery
DX: K21.9 Gastro-esophageal reflux disease without esophagitis (principal)
CPT/HCPCS: 99213

== ENCOUNTER → 2023-07-01 15:28 | Outpatient (BNVA) | payer MEDICARE, MEDICAID, SELFPAY ==
[2022-04-07 16:39] VITALS: BP 123/81; BMI 41.3
== END ==
PROVIDERS: PCP Family Medicine; Visit Provider Podiatrist Foot & Ankle Surgery
DX: M25.572 Pain in left ankle and joints of left foot (principal); Z98.890 Other specified postprocedural states
CPT/HCPCS: 73610; 99213

== ENCOUNTER 2023-07-05 14:12 | Outpatient (CLI) | payer MEDICARE, MEDICAID, SELFPAY ==
[2022-04-07 16:39] VITALS: BP 123/81; BMI 41.3
--- NOTE | 2023-07-05 14:30 | MR_ITS ---
WS: [id number] MRI LEFT ANKLE WITHOUT CONTRAST. COMPARISON: Radiograph 07/01/2023. Prior MRI foot 09/07/2022 Multiplanar, multisequence imaging is performed without contrast. History: Previous ankle surgery, modified Bromstrom procedure. History of anterior talofibular ligame nt tear. There is artifact along the lateral ankle at the site of the prior Bromstrom repair. The repaired lig ament is identified and does appear to be intact. There is no full-thickness retear. There is a small amount of increased T2 signal surrounding the repaired ligament, some of this increased signal is ar tifact. There is a small amount of fluid surrounding the anterior talar process. No fractures or marrow edema. Deltoid ligament is normal. Anterior and posterior tibiofibular ligamen ts are intact. Normal Achilles tendon. No plantar fasciitis. There is a small calcaneal spur and enthesopathy at the Achilles attachment. There is a very small amount of marrow edema in the anterior talar process. Fle xor and extension tendons and tendon sheaths are normal. Small amount of fluid inseparable from the distal anterior tibial tendon. This may be a small ganglio n which is unchanged. IMPRESSION: 1. Status post repair of the anterior talofibular ligament. Postsurgical changes are identified. The re is a tiny amount of fluid surrounding the ligament near the talus. There is no full-thickness tear . Majority of the ligament appears intact. Taking into consideration the artifact from the prior repa ir no new tendon full-thickness tears are identified. 2. Small amount of fluid extends along the anterior talar process. 3. There is no marrow edema. 4. Small amount of fluid adjacent to the distal anterior tibial tendon. This could be a small gangli on. This was also present on the prior study. No increase in size.
== END 2023-07-05 14:13 | disposition home or self-care (01) ==
LOC: RAD 14:13
PROVIDERS: PCP Family Medicine; Visit Provider Podiatrist Foot & Ankle Surgery
DX: M84.373A Stress fracture, unspecified ankle, initial encounter for fracture (principal); X58.XXXA Exposure to other specified factors, initial encounter
CPT/HCPCS: 73721

== ENCOUNTER → 2023-07-13 08:04 | Outpatient (BNVA) | payer MEDICARE, MEDICAID, SELFPAY ==
[2022-04-07 16:39] VITALS: BP 123/81; BMI 41.3
== END ==
PROVIDERS: PCP Family Medicine; Visit Provider Podiatrist Foot & Ankle Surgery
DX: Z98.890 Other specified postprocedural states; M25.372 Other instability, left ankle
CPT/HCPCS: 99213

== ENCOUNTER → 2023-09-03 13:05 | Outpatient (BNVA) | payer MEDICARE, OTHER, SELFPAY ==
[2022-04-07 16:39] VITALS: BP 123/81; BMI 41.3
== END ==
PROVIDERS: Visit Provider Nurse Practitioner
DX: Z79.899 Other long term (current) drug therapy (principal)
CPT/HCPCS: 80061; 83036

== ENCOUNTER 2023-12-07 06:46 | Outpatient (CLI) | payer MEDICARE, MEDICAID, SELFPAY ==
[2023-11-23 14:49] VITALS: BP 123/81; BMI 41.3
--- NOTE | 2023-12-07 07:08 | CT_ITS ---
WS: [id number] CT ABDOMEN PELVIS TECHNIQUE: Contrast-enhanced CT of the abdomen and pelvis with coronal and sagittal reformatted image s. CLINICAL INFORMATION: ABDOMINAL PAIN COMPARISON: CT 01/11/2013 DLP: 1095.[address] scans at [facility] use at least one of these dose optimization techniques: automated e xposure control; mA and/or kV adjustment per patient size (includes targeted exams where dose is matc hed to clinical indication); or iterative reconstruction. FINDINGS: Prior cholecystectomy. Prior hysterectomy. Diffuse fatty infiltration of the liver. Mild hepatomegaly with enlargement RIGHT hepatic lobe. Normal spleen. Tiny esophageal hiatal hernia. Normal caliber ab dominal aorta. Normal pancreas. Normal portal vein and splenic vein. Normal renal parenchymal enhance ment. No hydronephrosis in either kidney. Mild thickening of the RIGHT adrenal gland. LEFT adrenal gl and is normal. Normal sigmoid colon. Normal retrocecal appendix. No evidence of small or large bowel obstruction. Normal caliber abdominal aorta. No lymphadenopathy. RIGHT ovarian cystic lesion measuring 11.3 x 9.1 cm. Recommend further evaluation with ultrasound considering size. CT/CT abdomen pelvis w con* [id number] IMPRESSION: 1. Prior cholecystectomy and hysterectomy. 2. Mild hepatomegaly with diffuse fatty infiltration of the liver. 3. Tiny esophageal hernia. 4. RIGHT ovarian cystic lesion measuring 11.3 x 9.1 cm. Recommend further eval uation with ultrasound. Patient at risk for torsion and considering large size. 5. No other acute findings.
[2023-12-07] MEDS: iohexol 350 mg/mL 500 mL Btl (per mL) PO (08:09)
[2023-12-07] MEDS: iohexol 350 mg/mL 500 mL Btl (per mL) IV (08:32)
== END 2023-12-07 06:47 | disposition home or self-care (01) ==
LOC: RAD 06:46
PROVIDERS: PCP Family Medicine; Visit Provider Family Medicine
DX: R10.9 Unspecified abdominal pain (principal); N83.201 Unspecified ovarian cyst, right side; R16.0 Hepatomegaly, not elsewhere classified; K76.0 Fatty (change of) liver, not elsewhere classified; K44.9 Diaphragmatic hernia without obstruction or gangrene; Z98.890 Other specified postprocedural states
CPT/HCPCS: 74177; Q9967

== ENCOUNTER 2023-12-23 15:23 | Outpatient (CLI) | payer MEDICARE, OTHER, SELFPAY ==
[2023-11-23 14:49] VITALS: BP 123/81; BMI 41.3
--- NOTE | 2023-12-23 15:27 | USR_ITS ---
PROCEDURE INFORMATION: Exam: US Pelvis, Complete, Non-Obstetric Exam date and time: 12/23/2023 3:44 PM Age: 48 years old Clinical indication: Abnormal findings; Abnormal imaging test; Prior surgery; Surgery date: 6+ months; Surgery type: Partial hysterectomy; Additional info: Ovarian cyst TECHNIQUE: Imaging protocol: Transabdominal pelvic nonobstetric ultrasound. Complete exam. Real time ultrasound with image documentation. COMPARISON: CT abdomen pelvis w con* [id number] 12/07/2023 8:14 AM FINDINGS: Uterus: Hysterectomy. Right ovary/adnexa: Simple appearing cyst within the right adnexa measures 8.7 x 11.1 x 8.9 cm. Unable to identify ovarian tissue given the size of the cyst. Left ovary/adnexa: Left ovary not identified on exam Intraperitoneal space: No intraperitoneal fluid. Urinary bladder: Normal. US/US pelv w/transvag [id number] IMPRESSION: Dominant cyst in the right adnexal region measuring 8.7 x 11.1 x 8.9 cm. It appears simple on ultrasound, however, due to large size may not be fully visualized on exam. Consider further imaging follow-up with MRI for more complete evaluation and surgical consultation given the increased risk of ovarian torsion.
== END 2023-12-23 15:24 | disposition home or self-care (01) ==
LOC: RAD 15:23
PROVIDERS: PCP Family Medicine; Visit Provider Family Medicine
DX: N83.201 Unspecified ovarian cyst, right side (principal)
CPT/HCPCS: 76830; 76856

== ENCOUNTER → 2024-01-26 10:32 | Outpatient (BNVA) | payer MEDICARE, OTHER, SELFPAY ==
[2023-11-23 14:49] VITALS: BP 123/81; BMI 41.3
== END ==
PROVIDERS: PCP Family Medicine; Referring Provider Family Medicine; Visit Provider Student in an Organized Health Care Education/Training Program
DX: K44.9 Diaphragmatic hernia without obstruction or gangrene (principal)
CPT/HCPCS: 99204; 99214

== ENCOUNTER 2024-02-09 09:03 | Outpatient (CLI) | payer MEDICARE, SELFPAY ==
[2023-11-23 14:49] VITALS: BP 123/81; BMI 41.3
--- NOTE | 2024-02-09 09:15 | FL_ITS ---
WS: [id number] Exam: FL barium swallow [id number] Date/Time of Exam: 02/09/2024 9:07 AM Reason For Exam: Fluoroscopy time: 2min [id number] minutes # of spot films: 7 The patient experienced a single episode of mild aspiration into the upper trachea when ingesting the barium. Oropharyngeal phase of swallowing was otherwise unremarkable. There appears to be anterior e xtrinsic displacement of the cervical esophagus from about C3-C7. No significant luminal narrowing is noted. There are no other areas of esophageal stricture. No intrinsic esophageal masses were demonst rated. The remainder the esophagus shows normal motility. No reflux or hiatal hernia seen. Recommendations: Contrast CT scan of the neck should be considered for further work-up. FL/FL barium swallow [id number] IMPRESSION: 1. Widening of the prevertebral soft tissues from C3-C7 showing some anterior e xtrinsic displacement of the esophagus at this level. Differential consideratio ns would include lipomatosis, lymphadenopathy or neck mass. 2. No intrinsic esophageal mass, stricture or motility disorder. 3. Single episode of mild aspiration of barium into the upper trachea.
== END 2024-02-09 09:04 | disposition home or self-care (01) ==
LOC: RAD 09:05
PROVIDERS: PCP Family Medicine; Visit Provider Student in an Organized Health Care Education/Training Program
DX: K44.9 Diaphragmatic hernia without obstruction or gangrene (principal)
CPT/HCPCS: 74220

== ENCOUNTER 2024-02-10 05:30 | Day surgery (SDC) | payer MEDICARE, MEDICAID, SELFPAY ==
[2023-11-23 14:49] VITALS: BP 123/81; BMI 41.3
--- NOTE | 2024-02-09 22:23 | P.HP_ITS ---
Same Day Surgery H&P Indication for Procedure/HPI DATE OF PROCEDURE: February 09, 2024 CHIEF COMPLAINT/INDICATIONFOR SURGICAL PROCEDURE: right ovarian cyst PREOP DIAGNOSIS: right ovarian cyst PLANNED PROCEDURE: Operation Date: 02/10/24 07:00 Proposed Procedures p Laparoscopy Diagnostic 58332, 67569,49399,N95.8, N94.89(Not Applicable) - Vijay Storey MD s Laparoscopic Ovarian Cystectomy(Right) - Vijay Storey MD s Laparoscopic Oophorectomy(Right) - Vijay Storey MD 48 y.o. h/o hysterectomy in 2009 began to have lower abdominal pains x one year CT scan and pelvic sono showed 11 cm right ovarian cyst now scheduled for laparoscopic cystectomy / oophorectomy Medications/Allergies* Home Medications Medication Instructions Recorded Confirmed Type topiramate 50 mg tablet (Topamax) 50 mg PO DAILY 04/30/22 02/09/24 History Allergies/Adverse Reactions Allergy/AdvReac Type Severity Reaction Status Date / Time Penicillins Allergy Unknown Verified 02/09/24 12:33 Pertinent History/Comorbid Conditions* Medical History (Updated 02/09/24 @ 22:21 by Vijay Storey MD) On combination antipsychotic drug therapy Tubular adenoma of colon Psychiatric care Psychiatric care Type 2 diabetes mellitus without complication, with long-term current use of insulin Essential hypertension Dyslipidemia Nicotine dependence, cigarettes, uncomplicated Bipolar II disorder Surgical History (Updated 03/23/23 @ 09:19 by Maurisio Bolanos DO) Hx of colonoscopy with polypectomy History of esophagogastroduodenoscopy (EGD) Hx of cholecystectomy H/O: hysterectomy (~2009) TVH--performed by [facility]; ovaries spared H/O section (~2003) Family History (Updated 03/31/22 @ 10:13 by Malu Olsen RN) Hyperlipidemia Mother Suicide Father Hypertension Mother Denies family history of Colon cancer Ovarian cancer Diabetes Heart disease Breast cancer Family history of thyroid problem Uterine cancer Stroke Social History Smoking and tobacco/nicotine status: current every day tobacco/nicotine user Pertinent Exam Findings alert, oriented x 3, clear to auscultation bilaterally and regular rate & rhythm Pertinent Data CT abd/pelvic 12-07-23 11.3 cm right ovarian cyst pelvic sono 12-23-23 11.1 cm simple right ovarian cyst left ovary not seen Recommendations Surgery/Procedure today Coding Level of Care Code Acute Code for Chg Fwd Time Spent (min) 30
[2024-02-10] VITALS (10 sets, daily range): BP systolic 112–146; BP diastolic 69–97; PULSE 72–96; RESP 16–19; TEMP 36.2–36.6; O2SAT 96–100; BMI 38.4
--- NOTE | 2024-02-10 06:04 | ANES.PREANE2 ---
Pre-Anesthetic Assessment Height/Weight: Height 5 ft 9 in Temp Pulse Resp BP Pulse Ox O2 Del Method 97.1 F L 84 17 146/97 97 Room Air 02/10/24 05:59 02/10/24 05:59 02/10/24 05:59 02/10/24 05:59 02/10/24 05:59 02/10/24 05:59 Preop Diagnosis: ovarian cyst Operation Date: 02/10/24 07:00 Proposed Procedures p Laparoscopy Diagnostic 98762, 23236,87869,N95.8, N94.89(Not Applicable) - Vijay Storey MD s Laparoscopic Ovarian Cystectomy(Right) - Vijay Storey MD s Laparoscopic Oophorectomy(Right) - Vijay Storey MD Was Beta Brandi taken within 24 hours: N/A Was Clonidine taken within 24 hours: N/A Last intake: Intake Last Liquid Date 02/09/24 Last Liquid Time 20:00 Last Solid Date 02/09/24 Last Solid Time 17:00 Social No alcohol and No tobacco Exam alert, oriented x 3, clear to auscultation bilaterally and regular rate & rhythm Airway Submandibular: within normal limits Cervical ROM: within normal limits Mallampati: Class III Comments: Comments: Upper false teeth Anesthetic Plan ASA status: 3 Anesthesia: General Other: No prior issues with anesthesia NPO since yesterday evening History of hiatal hernia with GERD on Protonix Hypertension on lisinopril and amlodipine, a.m. BP 146/97 Labs ordered BMI 38.4 METs greater than 4 Plan for GETA Medications/Allergies Home Medications Medication Instructions Recorded Confirmed Last Taken Type amlodipine 10 mg tablet (Norvasc) 10 mg PO DAILY #90 tabs 10/02/21 02/09/24 02/09/24 Rx lisinopril 10 mg tablet 10 mg PO DAILY #90 tabs 10/02/21 02/09/24 02/09/24 Rx topiramate 50 mg tablet (Topamax) 50 mg PO DAILY 04/30/22 02/09/24 02/09/24 History ASO brace #1 ea 09/16/22 02/02/24 Unknown Rx hydrocodone 5 mg-acetaminophen 325 1 tab PO Q6H PRN pain #28 tabs 10/08/22 02/09/24 Unknown Rx mg tablet pantoprazole 40 mg tablet,delayed 40 mg PO BID 6 weeks #84 tabs 03/23/23 02/09/24 02/09/24 Rx release (Protonix) bupropion HCl 150 mg 24 hr tablet, 150 mg PO QAM #90 tabs 02/02/24 02/09/24 02/09/24 Rx extended release (Wellbutrin XL) bupropion HCl 300 mg 24 hr tablet, 300 mg PO QAM #90 tabs 02/02/24 02/09/24 02/09/24 Rx extended release (Wellbutrin XL) buspirone 15 mg tablet 15 mg PO BID #180 tabs 02/02/24 02/09/24 02/09/24 Rx eszopiclone 3 mg tablet (Lunesta) 3 mg PO .HS #30 tabs 02/02/24 02/09/24 02/08/24 Rx hydroxyzine HCl 25 mg tablet See Rx Instructions .Route 02/02/24 02/09/24 Unknown Rx .COMPLEX #180 tabs quetiapine 300 mg tablet,extended 300 mg PO .HS #90 tabs 02/02/24 02/09/24 Unknown Rx release 24 hr (Seroquel XR) Allergies Allergy/AdvReac Type Severity Reaction Status Date / Time Penicillins Allergy Unknown Verified 02/10/24 05:58 [facility] Anesthesia Medical History On combination antipsychotic drug therapy Tubular adenoma of colon Psychiatric care Psychiatric care Type 2 diabetes mellitus without complication, with long-term current use of insulin Essential hypertension Dyslipidemia Nicotine dependence, cigarettes, uncomplicated Bipolar II disorder Surgical History Hx of colonoscopy with polypectomy History of esophagogastroduodenoscopy (EGD) Hx of cholecystectomy H/O: hysterectomy (~2009) TVH--performed by [facility] for [facility]; ovaries spared H/O section (~2003) Family History Mother Hypertension Hyperlipidemia Father Suicide Denies family history of Colon cancer Ovarian cancer Diabetes Heart disease Breast cancer Family history of thyroid problem Uterine cancer Stroke Social History Smoking and tobacco/nicotine status: current every day tobacco/nicotine user Female Reproductive History Para: 2 Spontaneous abortions: Yes (2) Data Anesthesia Cardiac Studies: No Data to Display
[2024-02-10] MEDS: sodium chloride 0.9% 1,000 ML 30 ML IV (06:15)
[2024-02-10 06:40] LABS: Basophils # 0.1 10^3/uL (0.0-0.1); Basophils % 1.2 %; Eosinophils # 0.6 10^3/uL (0.0-0.8); Hematocrit 44.4 % (36-47); Lymphocytes # 3.1 10^3/uL (0.8-4.8); Lymphocytes % 33.6 %; Mean Corpuscular HGB Conc 34.9 g/dL (30-55); Mean Corpuscular Hemoglobin 32.2 pg (27-33); Mean Corpuscular Volume 92.1 fl (85-98); Mean Platelet Volume 10.2 fL (7.4-10.4); Monocytes # 0.8 10^3/uL (0.2-0.9); Monocytes % 8.4 %; Neutrophils # 4.55 10^3/uL (1.8-7.7); Neutrophils % 49.6 %; Nucleated Red Blood Cells % 0 %; Platelet Count 200 10^3/cmm (157-399); Red Blood Count 4.82 10^6/uL (3.85-5.65); Red Cell Distribution Width 12.7 % (12.1-15.1); White Blood Count 9.17 10^3/uL (3.29-11.43)
--- NOTE | 2024-02-10 06:41 | W.PM.OPSUD ---
Surgery/Procedure H&P Update DATE OF PROCEDURE: February 10, 2024 DATE H&P PERFORMED: 01/25/24 H&P UPDATE INFORMATION: I have reviewed H&P completed within last 30 days, I have examined patient prior to procedure and No changes to prior documentation PREOP DIAGNOSIS: ovarian cyst PLANNED PROCEDURE: Operation Date: 02/10/24 07:00 Proposed Procedures p Laparoscopy Diagnostic 54118, 41024,00327,N95.8, N94.89(Not Applicable) - Vijay Storey MD s Laparoscopic Ovarian Cystectomy(Right) - Vijay Storey MD s Laparoscopic Oophorectomy(Right) - Vijay Storey MD
[2024-02-10 06:52] LABS: Anion Gap 13.7 (5-19); Blood Urea Nitrogen 10 mg/dL (6-20); Calcium 9.2 mg/dL (8.5-10.5); Carbon Dioxide 22 mmol/L (22-29); Chloride 108 mmol/L (98-107); Creatinine Clr Calc Pharmacy 131.8921; Glomerular Filtration Rate 88.6 mL/min (90-130); Glucose 130 mg/dL (65-115); Osmolality Calculated 291 mOsm/kg (285-295); Potassium 3.7 mmol/L (3.5-5.1); Sodium 140 mmol/L (136-145)
--- NOTE | 2024-02-10 09:40 | PM.OP ---
Operative Report Date of procedure: February 10, 2024 Pre-op diagnosis: right ovarian cyst Post-op diagnosis: same Post-op findings: surgically absent uterus Normal right and left ovaries Presence of a 12 cm right adnexal cyst, separate from the right ovary Procedure done: Laparoscopic right cystectomy Implants: none Specimens removed/disposition: right adnexal cyst Surgeon: Vijay Storey MD Anesthesia: General Estimated blood loss (mL): 5 Complications: none Findings: surgically absent uterus Normal right and left ovaries Presence of a 12 cm right adnexal cyst, separate from the right ovary Condition: stable Disposition: PACU Brief History: 48 y.o. h/o TVH 2009 done at [facility] for bleeding c/o lower abdominal pain x one year pelvic sono showed 11-12 cm simple right ovarian cyst Procedure: Informed consent obtained. The patient was taken to the OR and placed supine on the table. General endotracheal anesthesia was given. The abdomen and perineum were prepped and draped in usual fashion. A garza catheter was placed. A 5 mm subumbilical skin incision was made. A laparoscopic trocar with sheath was inserted into the peritoneal cavity under direct vision with the laparoscope. Pneumoperitoneum was achieved. Two separate 5 mm incisions were made in the right and left mid-abdominal quadrants under direct visualization to accommodate additional trocars and sheaths. The pelvis was explored with the laparoscope. The uterus was surgically absent. The ovaries were seen to be normal. There was a 12 cm adnexal cyst adjacent to the right ovary. A laparoscopic needle was used to drain clear fluid from the cyst. Approximately 500 cc of fluid was removed and discarded. The cyst wall was opened and then dissected into smaller portions with the Ligasure device. The cyst wall was removed via the laparoscopic sheath. No abnormalities were seen in the utero-ovarian ligaments, broad ligaments, anterior cul-de-sac and pelvic side-mckay. No bleeding was seen All instruments were then removed from the abdominal cavity after the pneumoperitoneum was allowed to escape. The skin incisions were closed with 4-O monocryl. Dermabond was applied. The garza catheter was removed. There was no bleeding from the cervix. The patient was then awakened and taken to the recovery room in good condition. Postop condition stable. EBL 5 cc. There were no complications. Sponge and instrument counts were correct x two
--- NOTE | 2024-02-10 10:36 | ANE.PACU2 ---
Inpatient post-anesthesia follow up: Airway intact: Yes Vital signs: Temperature 97.8 F Pulse Rate 72 Respiratory Rate 16 Blood Pressure 115/83 Pulse Oximetry 97 Oxygen Delivery Me thod Room Air Oxygen Flow Rate 10 Fraction of Inspir ed Oxygen Hydration adequate: Yes Nausea and vomiting: No Mental status: Baseline
== END 2024-02-10 10:36 | disposition home or self-care (01) ==
PROVIDERS: Student in an Organized Health Care Education/Training Program; PCP Family Medicine; Visit Provider Obstetrics & Gynecology
PROC: (CPT 49320; principal; 2024-02-10 07:00)
PROC: (CPT 58662; 2024-02-10 07:00)
PROC: (CPT 58661; 2024-02-10 07:00)
DX: N83.201 Unspecified ovarian cyst, right side (principal); I10 Essential (primary) hypertension; E11.9 Type 2 diabetes mellitus without complications; F17.210 Nicotine dependence, cigarettes, uncomplicated; K21.9 Gastro-esophageal reflux disease without esophagitis
CPT/HCPCS: 49322; 51702; 80048; 85025; 88304; J0330; J1885; J2250; J2704; J3010; J3490; J7030

== ENCOUNTER 2024-02-23 13:41 | Outpatient (CLI) | payer MEDICARE, MEDICAID, SELFPAY ==
[2023-11-23 14:49] VITALS: BP 123/81; BMI 41.3
== END 2024-02-23 13:42 | disposition home or self-care (01) ==
LOC: RT 13:42
PROVIDERS: PCP Family Medicine; Visit Provider Family Medicine
DX: J98.4 Other disorders of lung (principal)
CPT/HCPCS: 94010; 94726; 94729

== ENCOUNTER 2024-02-28 09:23 | Day surgery (SDC) | payer MEDICARE, MEDICAID, SELFPAY ==
[2023-11-23 14:49] VITALS: BP 123/81; BMI 41.3
[2024-02-28 09:38] VITALS: BP 155/104; PULSE 90; RESP 18; TEMP 36.4; O2SAT 97; BMI 39.8
[2024-02-28] MEDS: sodium chloride 0.9% 1,000 ML 30 ML IV (09:46)
--- NOTE | 2024-02-28 10:48 | P.ANESASSM_ITS ---
Pre-Anesthetic Assessment Height/Weight: Height 1.73 m Weight 118.841 kg Temp Pulse Resp BP Pulse Ox O2 Del Method 97.5 F L 90 18 155/104 97 Room Air 02/28/24 09:38 02/28/24 09:38 02/28/24 09:38 02/28/24 09:38 02/28/24 09:38 02/28/24 09:38 Preop Diagnosis: Hiatal Hernia Operation Date: 02/28/24 10:30 Proposed Procedures p EGD - 60135, K44.9(Not Applicable) - Edgar Rogers MD Familial anesthetic complications: none Was Beta Brandi taken within 24 hours: N/A Was Clonidine taken within 24 hours: N/A Last intake: Intake Last Liquid Date 02/27/24 Last Liquid Time 22:30 Last Solid Date 02/27/24 Last Solid Time 18:00 Social Tobacco and No alcohol Exam alert, oriented x 3, clear to auscultation bilaterally and regular rate & rhythm Airway Submandibular: within normal limits Cervical ROM: within normal limits Mallampati: Class II Dentition: false (removed ) Pulmonary Chronic Obstructive Pulmonary Disease CV/HEM Hypertension None reported Hepatic None reported GI Gastroesophageal Reflux Disease Metabolic Hyperlipidemia and Morbid Obesity A1C 5.2 08/31 [facility] [place] None reported Neuropsych Anxiety, Bipolar and Depression Anesthetic Plan ASA status: 3 Anesthesia: MAC Medications/Allergies Home Medications Medication Instructions Recorded Confirmed Last Taken Type amlodipine 10 mg tablet (Norvasc) 10 mg PO DAILY #90 tabs 10/02/21 02/24/24 02/27/24 Rx lisinopril 10 mg tablet 10 mg PO DAILY #90 tabs 10/02/21 02/24/24 02/27/24 Rx topiramate 50 mg tablet (Topamax) 50 mg PO DAILY 04/30/22 02/24/24 02/27/24 History ASO brace #1 ea 09/16/22 02/02/24 Unknown Rx pantoprazole 40 mg tablet,delayed 40 mg PO BID 6 weeks #84 tabs 03/23/23 02/24/24 02/27/24 Rx release (Protonix) bupropion HCl 150 mg 24 hr tablet, 150 mg PO QAM #90 tabs 02/02/24 02/24/24 02/27/24 Rx extended release (Wellbutrin XL) bupropion HCl 300 mg 24 hr tablet, 300 mg PO QAM #90 tabs 02/02/24 02/24/24 02/27/24 Rx extended release (Wellbutrin XL) buspirone 15 mg tablet 15 mg PO BID #180 tabs 02/02/24 02/24/24 02/27/24 Rx eszopiclone 3 mg tablet (Lunesta) 3 mg PO .HS #30 tabs 02/02/24 02/24/24 02/27/24 Rx quetiapine 300 mg tablet,extended 300 mg PO .HS #90 tabs 02/02/24 02/24/24 02/27/24 Rx release 24 hr (Seroquel XR) hydroxyzine HCl 25 mg tablet 25 mg PO BEDTIME PRN Sleep 02/24/24 02/24/24 02/27/24 History Allergies Allergy/AdvReac Type Severity Reaction Status Date / Time Penicillins Allergy Unknown Verified 02/24/24 10:05 Current Medications Generic Name Dose Route Start Last Admin Trade Name Freq PRN Reason Stop Dose Admin Sodium Chloride 1,000 mls @ 30 mls/hr 02/28/24 09:30 02/28/24 09:46 Sodium Chloride 0.9% IV 30 mls/hr .Q24H SHAWNA Administration PFSH Anesthesia Medical History On combination antipsychotic drug therapy Tubular adenoma of colon Psychiatric care Psychiatric care Type 2 diabetes mellitus without complication, with long-term current use of insulin Essential hypertension Dyslipidemia Nicotine dependence, cigarettes, uncomplicated Bipolar II disorder Surgical History Hx of colonoscopy with polypectomy History of esophagogastroduodenoscopy (EGD) Hx of cholecystectomy H/O: hysterectomy (~2009) TVH--performed by [facility] for AUB; ovaries spared H/O section (~2003) Family History Mother Hypertension Hyperlipidemia Father Suicide Denies family history of Colon cancer Ovarian cancer Diabetes Heart disease Breast cancer Family history of thyroid problem Uterine cancer Stroke Social History Smoking and tobacco/nicotine status: current every day tobacco/nicotine user cigarettes Household members: family Current occupational status: disabled Leisure activites: games and other Current gender identity: Female Female Reproductive History Para: 2 Spontaneous abortions: Yes (2) Data Anesthesia Cardiac Studies: No Data to Display
--- NOTE | 2024-02-28 11:18 | P.HP_ITS ---
Same Day Surgery H&P Indication for Procedure/HPI DATE OF PROCEDURE: February 28, 2024 CHIEF COMPLAINT/INDICATIONFOR SURGICAL PROCEDURE: GERD PREOP DIAGNOSIS: Hiatal Hernia PLANNED PROCEDURE: Operation Date: 02/28/24 10:30 Proposed Procedures p EGD - 98312, K44.9(Not Applicable) - Edgar Rogers MD Medications/Allergies* Home Medications Medication Instructions Recorded Confirmed Type topiramate 50 mg tablet (Topamax) 50 mg PO DAILY 04/30/22 02/24/24 History hydroxyzine HCl 25 mg tablet 25 mg PO BEDTIME PRN Sleep 02/24/24 02/24/24 History Allergies/Adverse Reactions Allergy/AdvReac Type Severity Reaction Status Date / Time Penicillins Allergy Unknown Verified 02/24/24 10:05 Current Medications: Generic Name Dose Route Start Last Admin Trade Name Freq PRN Reason Stop Dose Admin Sodium Chloride 1,000 mls @ 30 mls/hr 02/28/24 09:30 02/28/24 09:46 Sodium Chloride 0.9% IV 30 mls/hr .Q24H SHAWNA Administration Pertinent History/Comorbid Conditions* Medical History (Updated 02/22/24 @ 09:31 by Carol Brown NP) On combination antipsychotic drug therapy Tubular adenoma of colon Psychiatric care Psychiatric care Type 2 diabetes mellitus without complication, with long-term current use of insulin Essential hypertension Dyslipidemia Nicotine dependence, cigarettes, uncomplicated Bipolar II disorder Surgical History (Updated 03/23/23 @ 09:19 by Maurisio Bolanos DO) Hx of colonoscopy with polypectomy History of esophagogastroduodenoscopy (EGD) Hx of cholecystectomy H/O: hysterectomy (~2009) TVH--performed by [facility] for AUB; ovaries spared H/O section (~2003) Family History (Updated 03/31/22 @ 10:13 by Malu Olsen RN) Hyperlipidemia Mother Suicide Father Hypertension Mother Denies family history of Colon cancer Ovarian cancer Diabetes Heart disease Breast cancer Family history of thyroid problem Uterine cancer Stroke Social History Smoking and tobacco/nicotine status: current every day tobacco/nicotine user cigarettes Household members: family Current occupational status: disabled Leisure activites: games and other Current gender identity: Female Pertinent Exam Findings alert, oriented x 3, clear to auscultation bilaterally, regular rate & rhythm and procedure specific exam findings abdomen soft, nt, nd Recommendations Surgery/Procedure today Other Plans: EGD today for worsening heartburn and reflux Coding Level of Care Code Acute Code for Chg Fwd Time Spent (min) 30
[2024-02-28 11:32] VITALS: BP 105/76; PULSE 68; RESP 16; TEMP 36.6; O2SAT 99
[2024-02-28 11:46] VITALS: BP 124/77; PULSE 70; RESP 18; O2SAT 96
--- NOTE | 2024-02-28 12:00 | ANE.PACU2 ---
Inpatient post-anesthesia follow up: Airway intact: Yes Vital signs: Temperature 97.8 F Pulse Rate 70 Respiratory Rate 18 Blood Pressure 124/77 Pulse Oximetry 96 Oxygen Delivery Me thod Room Air Oxygen Flow Rate 6 Fraction of Inspir ed Oxygen Hydration adequate: Yes Nausea and vomiting: No Pain level: 1 Mental status: Baseline
== END 2024-02-28 12:01 | disposition home or self-care (01) ==
PROVIDERS: PCP Family Medicine; Visit Provider Student in an Organized Health Care Education/Training Program
PROC: 0DJ08ZZ Inspection of Upper Intestinal Tract, Via Natural or Artificial Opening Endoscopic (ICD-10-PCS; CPT 43235; principal; 2024-02-28 10:30)
DX: K44.9 Diaphragmatic hernia without obstruction or gangrene (principal); E11.9 Type 2 diabetes mellitus without complications; I10 Essential (primary) hypertension; E78.5 Hyperlipidemia, unspecified; F17.210 Nicotine dependence, cigarettes, uncomplicated; K29.50 Unspecified chronic gastritis without bleeding; K21.00 Gastro-esophageal reflux disease with esophagitis, without bleeding; J44.9 Chronic obstructive pulmonary disease, unspecified; E66.01 Morbid (severe) obesity due to excess calories; Z68.39 Body mass index [BMI] 39.0-39.9, adult
CPT/HCPCS: 43239; 88305; J2704; J7030

== ENCOUNTER → 2024-03-13 08:29 | Outpatient (BNVA) | payer MEDICARE, MEDICAID, SELFPAY ==
[2023-11-23 14:49] VITALS: BP 123/81; BMI 41.3
== END ==
PROVIDERS: PCP Family Medicine; Visit Provider Student in an Organized Health Care Education/Training Program
DX: Z09 Encounter for follow-up examination after completed treatment for conditions other than malignant neoplasm (principal); R03.0 Elevated blood-pressure reading, without diagnosis of hypertension
CPT/HCPCS: 99204; 99214

== ENCOUNTER → 2024-05-31 08:55 | Outpatient (BNVA) | payer MEDICARE, MEDICAID, SELFPAY ==
[2023-11-23 14:49] VITALS: BP 123/81; BMI 41.3
== END ==
PROVIDERS: PCP Family Medicine; Referring Provider Family Medicine; Visit Provider Nurse Practitioner Family
DX: D48.5 Neoplasm of uncertain behavior of skin (principal); L57.3 Poikiloderma of Civatte; L81.4 Other melanin hyperpigmentation
CPT/HCPCS: 11102; 99203

== ENCOUNTER → 2024-06-05 08:45 | Outpatient (BNVA) | payer MEDICARE, MEDICAID, SELFPAY ==
[2023-11-23 14:49] VITALS: BP 123/81; BMI 41.3
== END ==
PROVIDERS: PCP Family Medicine; Visit Provider Internal Medicine Cardiovascular Disease
DX: Z79.899 Other long term (current) drug therapy (principal); R00.2 Palpitations; I49.1 Atrial premature depolarization
CPT/HCPCS: 93225

== ENCOUNTER 2024-06-14 08:51 | Outpatient (CLI) | payer MEDICARE, MEDICAID, SELFPAY ==
[2023-11-23 14:49] VITALS: BP 123/81; BMI 41.3
--- NOTE | 2024-06-14 09:02 | CT_ITS ---
WS: [id number] LDCT LUNG CANCER SCREENING HISTORY: HX OF TOBACCO USE TECHNIQUE: Axial imaging performed from the apices to 1 cm below the costophrenic angles. Coronal and sagittal reformats are submitted with axial MIP series. All CT scans at [facility] use at least one of these dose optimization techniques: automated exposure control; mA and/or kV adjustment per patient size (includes targeted exams where dose is matched to clinical indication); or iterative reconstruction. DLP: 138.51 mGy.cm DIvol: Mean CTDIvol: 3.60 (mGy) COMPARISON: None available. Diagnostic quality: Satisfactory Lungs: No pulmonary mass or nodule. No pneumonia. No endobronchial lesions. Heart: Normal size heart with no pericardial effusion.. Other findings: Small RIGHT paratracheal lymph node 12 mm. Prior cholecystectomy. No adrenal mass. Hepatic steatosis. CT/CT lung screening 60532 IMPRESSION: LUNG-RADS: 1-Negative FOLLOW UP: 12 Month: Continue annual screening with LDCT OTHER FINDINGS (S MODIFIER): None.
== END 2024-06-14 08:52 | disposition home or self-care (01) ==
LOC: RAD 08:53
PROVIDERS: PCP Family Medicine; Visit Provider Family Medicine
DX: Z12.2 Encounter for screening for malignant neoplasm of respiratory organs (principal); Z87.891 Personal history of nicotine dependence; R59.0 Localized enlarged lymph nodes; Z90.49 Acquired absence of other specified parts of digestive tract; K76.0 Fatty (change of) liver, not elsewhere classified
CPT/HCPCS: 71271

== ENCOUNTER 2024-07-05 06:51 | Outpatient (CLI) | payer MEDICARE, MEDICAID, SELFPAY ==
[2023-11-23 14:49] VITALS: BP 123/81; BMI 41.3
--- NOTE | 2024-07-05 06:55 | USCV_ITS ---
Ophelia Lama Age: 48 Gender: F : 1975 Exam Date: 07/05/2024 07:09 Ordering Phys: Alexei Hinojosa MD Technologist: Exam Location: [facility] [place] Indication: sob cp BP: 130 / 80 HR: 77 Rhythm: Sinus Technical Quality: Adequate MEASUREMENTS (Male / Female) Normal Values 2D ECHO LV Diastolic Diameter PLAX 3.8 cm 4.2 - 5.9 / 3.9 - 5.3 cm IVS Diastolic Thickness 1.3 cm 0.6 - 1.0 / 0.6 - 0.9 cm IVS Systolic Thickness 2.1 cm LVPW Diastolic Thickness 1.6 cm 0.6 - 1.0 / 0.6 - 0.9 cm LVPW Systolic Thickness 1.6 cm LVOT Diameter 2.0 cm LV Ejection Fraction 2D Teich 60.7 % LV Ejection Fraction MOD 4C 56.5 % LV Ejection Fraction MOD 2C 51.4 % LV Ejection Fraction 2C AL 53.2 % LA Diameter 3.1 cm RA Systolic Volume 4C AL 22.7 ml RA Systolic Volume 4C MOD 21.4 ml LA Sys Volume AL 39.0 cm cubed LA Sys Volume Index AL 16.0 cm cubed/m squared Aorta at Sinotubular Diameter 2.6 cm IVC Diameter 2.2 cm M-MODE LA Ao Ratio MM 1.5 AV Cusp Separation MM 1.9 cm DOPPLER AV Peak Velocity 193.0 cm/s LVOT Peak Velocity 100.0 cm/s AV Area Cont Eq vti 1.8 cm squared AV Area Cont Eq pk 1.7 cm squared MV Peak Velocity 89.0 cm/s MV Area PHT 4.0 cm squared Mitral E to A Ratio 1.1 TR Peak Velocity 146.0 cm/s TR Peak Gradient 8.5 mmHg TV Peak E Velocity 83.0 cm/s PV Peak Velocity 127.0 cm/s FINDINGS Left Ventricle Normal left ventricular size, systolic function and wall thickness, with no regional wall motion abnormalities. Left ventricular ejection fraction is estimated at 55 %. Grade I/IV diastolic dysfunction (abnormal relaxation filling pattern), normal to mildly elevated filling pressures. Right Ventricle The right ventricle is normal in size and function. Right Atrium The right atrium is normal in size. Left Atrium The left atrium is normal in size. Mitral Valve Structurally normal mitral valve without significant stenosis or prolapse. There is no mitral regurgitation. Aortic Valve Structurally normal aortic valve without significant sclerosis or stenosis. There is no aortic regurgitation. Tricuspid Valve Structurally normal tricuspid valve without significant stenosis or regurgitation. Pulmonary artery systolic pressure is normal. Pulmonic Valve Structurally normal pulmonic valve without significant stenosis. There is no pulmonic regurgitation. Pericardium Normal pericardium without effusion. Aorta Normal ascending aorta dimension. IVC The inferior vena cava appears normal. CONCLUSIONS Normal left ventricular size, systolic function and wall thickness, with no regional wall motion abnormalities. Left ventricular ejection fraction is estimated at 55 %. Grade I/IV diastolic dysfunction (abnormal relaxation filling pattern), normal to mildly elevated filling pressures. There is no pericardial effusion. No significant valve abnormalities. Right atrial pressure is around 5 mm of mercury. Oliva Wise MD (Electronically Signed) Final Date: 24 July 2024 19:01 S
--- NOTE | 2024-07-05 06:59 | CT_ITS ---
WS: [id number] CT NECK TECHNIQUE: Contrast-enhanced CT of the neck with coronal and sagittal reformatted images. CLINICAL INFORMATION: NECK MASS COMPARISON: None. DLP: 237.[address] scans at [facility] use at least one of these dose optimization techniques: automated exposure control; mA and/or kV adjustment per patient size (includes targeted exams where dose is matched to clinical indication); or iterative reconstruction. FINDINGS: Straightening with reversal of the normal cervical lordosis. Mild spondylitic changes. No evidence of prevertebral neck mass to correspond to the barium swallow findings. Mild central canal stenosis C5-C7. RIGHT maxillary sinusitis mastoid air cells are well aerated. Normal posterior nasopharynx. Normal parapharyngeal fat. Parotid glands are normal. Normal submandibular glands. Small cystic lesion calcification in the RIGHT tonsil measuring 8 mm. No evidence of supraglottic or glottic mass. Normal vallecula and piriform sinuses. Normal subglottic airway. Normal thyroid. Lung apices are well aerated. No cervical lymphadenopathy. CT/CT neck w con* [id number] IMPRESSION: 1. Normal salivary glands. 2. No evidence of paravertebral mass. 3. Submucosal cystic lesion RIGHT tonsil measuring 8 mm with small amount of c alcification or inspissated secretions. This can be further evaluated with endo scopy. 4. RIGHT maxillary sinusitis. 5. No other acute findings.
[2024-07-05] MEDS: iohexol 350 mg/mL 500 mL Btl (per mL) IV (07:36)
== END 2024-07-05 06:52 | disposition home or self-care (01) ==
PROVIDERS: PCP Family Medicine; Visit Provider Family Medicine
DX: R22.1 Localized swelling, mass and lump, neck (principal); J32.0 Chronic maxillary sinusitis; K13.70 Unspecified lesions of oral mucosa; M47.892 Other spondylosis, cervical region; M48.02 Spinal stenosis, cervical region; I51.9 Heart disease, unspecified
CPT/HCPCS: 70491; 93306

== ENCOUNTER 2024-07-06 11:18 | Outpatient (CLI) | payer MEDICARE, MEDICAID, SELFPAY ==
[2023-11-23 14:49] VITALS: BP 123/81; BMI 41.3
--- NOTE | 2024-07-06 | MM_ITS ---
WS: [id number] BILATERAL SCREENING DIGITAL TOMOSYNTHESIS MAMMOGRAM WITH CAD HISTORY: ANNUAL SCREENING COMPARISON: 02/06/2020, 12/30/2017 Bilateral CC and MLO views with tomosynthesis and synthetic mammography submitted. Computer aided detection analyzed. Breast composition: There are scattered areas of fibroglandular density. No suspicious masses, microcalcifications or architectural distortion. Benign scattered calcifications within each breast. No suspicious grouping of calcification or mass. MM/MM scr tomosynthesis [id number] IMPRESSION: BI-RADS: 2 - Benign. FOLLOW UP: 1 Year Follow-up
== END 2024-07-06 11:19 | disposition home or self-care (01) ==
PROVIDERS: PCP Family Medicine; Visit Provider Family Medicine
DX: Z12.31 Encounter for screening mammogram for malignant neoplasm of breast (principal); R92.323 Mammographic fibroglandular density, bilateral breasts; R92.1 Mammographic calcification found on diagnostic imaging of breast
CPT/HCPCS: 77063; 77067

== ENCOUNTER 2024-08-15 13:27 | Outpatient (CLI) | payer MEDICARE, MEDICAID, SELFPAY ==
[2023-11-23 14:49] VITALS: BP 123/81; BMI 41.3
--- NOTE | 2024-08-15 13:35 | MR_ITS ---
WS: [id number] MRI NECK WITH AND WITHOUT CONTRAST. COMPARISON: CT neck 07/05/2024 Multiplanar, multisequence imaging is performed with and without contrast. MultiHance 20 mL. Very subtle low signal nodule noted in the RIGHT [place] tonsil measuring 5 mm. This nodule is really only seen on the postcontrast coronal and sagittal sequence. This corresponds to the mass noted on recent CT. There is no enhancement. No additional soft tissue mass or enhancement noted at the tongue base or through the larynx. Epiglottis appears normal. No significant narrowing of the airway. Mildly enlarged and hypervascular level 2 lymph node on the RIGHT measures 11 mm in short axis diameter. Smaller lymph node on the LEFT at the same location. No additional indeterminant nodes. C5-6 and C6-7: Disc osteophyte encroachment upon the ventral cord. MR/MR orbit face neck wo/w* [id number] IMPRESSION: 1. Nonenhancing low-attenuation mass in the RIGHT [place] tonsil measures 5 m m. This is best seen on the postcontrast coronal and sagittal sequences. There is no enhancement. This does correspond to the finding on the recent CT neck. T his is probably benign finding without enhancement. Direct visualization would probably benefit this patient. 2. Indeterminate and mildly prominent hypervascular RIGHT level 2 lymph node. Lymph node measures 11 mm in short axis diameter.
[2024-08-15] MEDS: gadobenate dimeglumine 20 mL vial IV (14:28)
== END 2024-08-15 13:28 | disposition home or self-care (01) ==
PROVIDERS: PCP Family Medicine; Visit Provider Specialist
DX: R13.19 Other dysphagia (principal); R93.89 Abnormal findings on diagnostic imaging of other specified body structures; R59.0 Localized enlarged lymph nodes; M50.322 Other cervical disc degeneration at C5-C6 level; M50.323 Other cervical disc degeneration at C6-C7 level
CPT/HCPCS: 70543

== ENCOUNTER 2024-10-10 20:00 | Outpatient (CLI) | payer MEDICARE, MEDICAID, SELFPAY ==
[2023-11-23 14:49] VITALS: BP 123/81; BMI 41.3
== END 2024-10-10 20:01 | disposition home or self-care (01) ==
LOC: SLEEP 10-11 05:17
PROVIDERS: PCP Family Medicine; Visit Provider Specialist
DX: G47.33 Obstructive sleep apnea (adult) (pediatric) (principal)
CPT/HCPCS: 95810

== ENCOUNTER 2024-10-12 10:39 | Outpatient (CLI) | payer OTHER, MEDICAID, SELFPAY ==
[2023-11-23 14:49] VITALS: BP 123/81; BMI 41.3
--- NOTE | 2024-10-12 10:44 | FL_ITS ---
WS: [id number] FL barium swallow modifd [id number] REASON FOR EXAM: Other dysphagia FLUOROSCOPY TIME: 4min [id number] # OF SPOT FILMS: 0 TECHNIQUE: Examination was supervised by the speech therapy department. The patient was examined in the sitting upright lateral projection. The swallowing of varying consistencies of barium was monitored fluoroscopically and video recorded. FINDINGS: No penetration or aspiration was identified. No dysmotility of the thoracic esophagus. Barium tablet passed unimpeded through the esophagus and into the stomach. FL/FL barium swallow modifd [id number] IMPRESSION: No penetration or aspiration. A detailed description of the swallowing will be rendered by the speech therapy department.
== END 2024-10-12 10:40 | disposition home or self-care (01) ==
LOC: RAD 10:41
PROVIDERS: PCP Family Medicine; Visit Provider Specialist
DX: R13.19 Other dysphagia (principal); R93.89 Abnormal findings on diagnostic imaging of other specified body structures
CPT/HCPCS: 74230; 92611